=== PATIENT | female | born 1995 | race Caucasian/White ===

== ENCOUNTER 2017-04-03 16:54 | Emergency (ER) | payer OTHER ==
[~2017-04-03] VITALS: Wt 90.7 kg
[~2017-04-03 16:54] MED LIST: B COMPLETE1 EACH PO; BACTRIM DS 8001 TA1 PO; BIRTH CONTROL; CATAFLAM50 MG PO; CLARITIN10 MG PO; FLEXERIL5 MG PO; MOTRIN400 MG PO; MOTRIN600 MG PO; MOTRIN800 MG PO; MULTIPLE VITAMI1 T22 PO; MULTIVITAMIN FO1 CAP PO; TAMIFLU75 MG PO; TYLENOL W/CODEI1 TA2 PO; TYLENOL325 M1 PO; ZITHROMAX Z PA250 MG PO; ZYRTEC10 MG PO; Zofran4 MG PO
[2017-04-03 17:20] LABS: BILIRUBIN NEGATIVE (NEGATIVE); BLOOD 2+ (NEGATIVE); CLARITY SL CLOUDY (CLEAR); COLOR YELLOW (YELLOW); GLUCOSE NEGATIVE (NEGATIVE); KETONE NEGATIVE (NEGATIVE); LEUKO ESTERASE 3+ (NEGATIVE); NITRITE NEGATIVE (NEGATIVE); UROBILINOGEN 0.2 E.U./dl (0.2-1.0)
[2017-04-03 17:27] LABS: BACTERIA 3+
[2017-04-03 17:28] LABS: EPITHELIAL CELLS 21-30
[2017-04-03 17:30] LABS: RBC 16-20 rbc/hpf (0-2); WBC 21-30 wbc/hpf (0-5)
[2017-04-03 17:32] LABS: BUN 7 mg/dl (7-24); CHLORIDE 105 mmol/L (98-107); CREATININE 0.82 mg/dL (0.55-1.02); POTASSIUM 3.9 mmol/L (3.5-5.1); SODIUM 140 mmol/L (136-145)
[2017-04-03] MEDS ORDERED: ANAPROX DS550 MG PO (18:45)
[2017-04-03] MEDS ORDERED: MACROBID100 M1 PO (18:45)
== END 2017-04-03 19:15 | disposition home or self-care (01) ==
LOC: ED 16:54
PROVIDERS: Physician Assistant
DX: N30.01 Acute cystitis with hematuria (principal); Z87.442 Personal history of urinary calculi; Z79.899 Other long term (current) drug therapy

== ENCOUNTER 2017-06-18 09:23 | Emergency (ER) | payer OTHER ==
[~2017-06-18] VITALS: Wt 104.3 kg
[~2017-06-18 09:23] MED LIST changes: +ANAPROX DS550 MG PO; +MACROBID100 M1 PO
[2017-06-18 10:02] LABS: BASO % 0.5 % (0.0-1.0); EOS # 0.1 10*3/uL (0.0-0.4); EOS % 1.7 % (1.0-4.0); HEMATOCRIT 41.7 % (37.0-47.0); HEMOGLOBIN 13.8 g/dl (12.0-16.0); LYMPH # 1.5 10*3/uL (1.3-4.4); LYMPH % 17.8 % (27.0-41.0); MEAN CELL VOLUME 95.4 fl (81.0-99.0); MEAN CORPUSCULAR HGB 31.6 pg (27.0-31.0); MEAN CORPUSCULAR HGB CONC 33.1 g/dl (33.0-37.0); MEAN PLATELET VOLUME 10.3 fl (9.6-12.3); MONO # 0.8 10*3/uL (0.1-1.0); MONO % 9.5 % (3.0-9.0); NEUT # 5.8 10*3/uL (2.3-7.9); NEUT % 70.1 % (47.0-73.0); PLATELET COUNT AUTOMATED 323 10*3/uL (130-400); RED BLOOD COUNT 4.37 10*6/uL (4.10-5.10); RED CELL DISTRI WIDTH 13.3 % (0-14.5); WHITE BLOOD COUNT 8.2 10*3/uL (4.8-10.8)
[2017-06-18 10:37] LABS: ALBUMIN 3.8 gm/dl (3.1-4.5); ALKALINE PHOSPHATASE 106 U/L (45-117); BUN 10 mg/dl (7-24); CHLORIDE 106 mmol/L (98-107); CREATININE 0.85 mg/dL (0.55-1.02); LIPASE 65 U/L (73-393); POTASSIUM 3.6 mmol/L (3.5-5.1); SGOT/AST 12 IU/L (3-35); SGPT/ALT 22 U/L (12-78); SODIUM 139 mmol/L (136-145); TOTAL PROTEIN 7.4 gm/dL (6.4-8.2)
[2017-06-18 10:42] LABS: BILIRUBIN 1+ (NEGATIVE); BLOOD 3+ (NEGATIVE); CLARITY CLOUDY (CLEAR); COLOR YELLOW (YELLOW); GLUCOSE NEGATIVE (NEGATIVE); KETONE NEGATIVE (NEGATIVE); LEUKO ESTERASE 1+ (NEGATIVE); NITRITE NEGATIVE (NEGATIVE); SPECIFIC GRAVITY >= 1.030 (1.005-1.030); UROBILINOGEN 0.2 E.U./dl (0.2-1.0)
[2017-06-18 10:54] LABS: BACTERIA 2+; EPITHELIAL CELLS 16-20
[2017-06-18] MEDS ORDERED: ZOFRAN ODT4 MG SL (13:45)
[2017-06-18] MEDS ORDERED: NAPROSYN500 MG PO (13:45)
[2017-06-18] MEDS ORDERED: MACROBID100 M1 PO (13:45)
== END 2017-06-18 13:55 | disposition home or self-care (01) ==
LOC: ED 09:23
PROVIDERS: Nurse Practitioner Family
DX: N20.0 Calculus of kidney (principal); N39.0 Urinary tract infection, site not specified; R31.9 Hematuria, unspecified; Z79.899 Other long term (current) drug therapy

== ENCOUNTER → 2017-07-24 | Outpatient (CLI) | payer OTHER ==
[~2017-07-24] MED LIST changes: +NAPROSYN500 MG PO; +ZOFRAN ODT4 MG SL
== END ==
LOC: MRI 08:00
DX: K86.89 Other specified diseases of pancreas (principal)

== ENCOUNTER 2017-08-21 19:47 | Emergency (ER) | payer OTHER ==
[~2017-08-21] VITALS: Ht 162.5 cm; Wt 86.2 kg
[2017-08-21 22:00] LABS: BILIRUBIN 2+ (NEGATIVE); BLOOD TRACE-INTACT (NEGATIVE); CLARITY CLOUDY (CLEAR); COLOR YELLOW (YELLOW); GLUCOSE NEGATIVE (NEGATIVE); KETONE 2+ (NEGATIVE); LEUKO ESTERASE 1+ (NEGATIVE); NITRITE NEGATIVE (NEGATIVE); PH 5.5 (5.0-9.0); SPECIFIC GRAVITY >= 1.030 (1.005-1.030); UROBILINOGEN 0.2 E.U./dl (0.2-1.0)
[2017-08-21 22:08] LABS: BACTERIA 4+; EPITHELIAL CELLS 45-50; RBC 16-20 rbc/hpf (0-2); WBC 16-20 wbc/hpf (0-5)
[2017-08-21 22:32] LABS: HEMATOCRIT 47.3 % (37.0-47.0); HEMOGLOBIN 15.9 g/dl (12.0-16.0); MEAN CELL VOLUME 94.2 fl (81.0-99.0); MEAN CORPUSCULAR HGB 31.7 pg (27.0-31.0); MEAN CORPUSCULAR HGB CONC 33.6 g/dl (33.0-37.0); PLATELET COUNT AUTOMATED 319 10*3/uL (130-400); RED BLOOD COUNT 5.02 10*6/uL (4.10-5.10); RED CELL DISTRI WIDTH 13.4 % (0-14.5); WHITE BLOOD COUNT 14.8 10*3/uL (4.8-10.8)
[2017-08-21 22:49] LABS: ALBUMIN 3.8 gm/dl (3.1-4.5); ALKALINE PHOSPHATASE 78 U/L (45-117); BUN 12 mg/dl (7-24); CHLORIDE 109 mmol/L (98-107); CREATININE 0.73 mg/dL (0.55-1.02); LIPASE 98 U/L (73-393); POTASSIUM 3.9 mmol/L (3.5-5.1); SGOT/AST 6 IU/L (3-35); SGPT/ALT 22 U/L (12-78); SODIUM 141 mmol/L (136-145); TOTAL PROTEIN 7.9 gm/dL (6.4-8.2)
[2017-08-21 22:52] LABS: PLATELET SUFFICIENCY NORMAL (NORMAL); TOTAL CELLS COUNTED 100 #CELLS
[2017-08-21] MEDS ORDERED: AMINOPHYLLIN200 MG PO (23:50)
== END 2017-08-22 00:09 | disposition home or self-care (01) ==
LOC: ED 19:47
PROVIDERS: Nurse Practitioner Family; Student in an Organized Health Care Education/Training Program
DX: N39.0 Urinary tract infection, site not specified (principal); A08.4 Viral intestinal infection, unspecified; Z79.899 Other long term (current) drug therapy

== ENCOUNTER → 2017-08-22 | Day surgery (SDC) | payer OTHER ==
[~2017-08-22] VITALS: Ht 160 cm; Wt 92.1 kg
[~2017-08-22] MED LIST changes: +AMINOPHYLLIN200 MG PO
--- NOTE | ~2017-08-22 | O ---
[place], [place] OPERATIVE NOTE NAME[id number] UNIT #: [id number] ROOM: DOCTOR: KOBI VICENTEAMEENA BIRTHDATE: [birth year] DOS: 08/22/2017 INDICATIONS: A 21-year-old patient who has presented with chief complaint of abdominal pain and radiation to the back at times. PAST FAMILY HISTORY: Associated with colon carcinoma in father. PAST MEDICAL HISTORY: Renal lithiasis nonobstructive, the left side. SOCIAL HISTORY: Nonsmoker, nonalcohol consumer. PROCEDURE: Today's procedure part of investigation is panendoscopy plus biopsy. PREMEDICATION: Versed and Diprivan. SCOPE: Olympus forward-viewing gastroscope Q10 video. REPORT: After putting the patient in left lateral position and application of lubricant to the scope, the scope was introduced; thereafter, under direct visualization, I advanced through the length of esophagus without difficulty. Gastric pouch was entered. Mild gastritis was noticed. Antral biopsy obtained. Duodenal bulb, second and third part within normal limit. The patient was gradually extubated and tolerated the procedure well. IMPRESSION: Mild gastritis, status post biopsy. PLAN: Continuation with Prilosec therapy. As far as abdominal pain and radiation to the back is concerned, I have reviewed her CT scans of 06/18/2017. The patient's CT scan main organs were within normal limits. A nonobstructing left renal calculi has been the only finding. Later on some comments about possible pancreatic stone was considered and MRCP was done, date of the MRCP was 07/24/2017. Normal MRCP is reported and no result was reported by radiologist. PLAN AND DISCUSSION: She may be having an element of periodic agitation from non-obstructive stone in the left kidney that she is experiencing some of her abdominal distress. I have reviewed her records otherwise, recently been in the Emergency Room for cough and cold symptomatology. There has been a complete panel of blood work, lipase have been normal. Liver function test has been normal. Electrolytes are unremarkable. BUN and creatinine within normal limits. Her rapid flu studies A and B has been negative and her CBC, H and H of 15 and 47, white blood cell was 14 on 08/21/2017, that was a visit that she has had to [facility] [place] last night and she does not appear to be toxic this morning. I thank you very much indeed for your kind referral. [place], [place] OPERATIVE NOTE NAME: ALCON JOHNSON UNIT #: [id number] ROOM: DOCTOR: KOBI VICENTE,AMEENA BIRTHDATE: [birth year] AMEENA PEACE MD CM:OPRECORD:OPERATIVE NOTE 1000 [id number] AMEENA PEACE MD 09/03/17 1024 interface
[2017-08-22 09:14] VITALS: BP 108/77
[2017-08-22 09:55] VITALS: BP 102/52
[2017-08-22 10:10] VITALS: BP 97/57
[2017-08-22 10:25] VITALS: BP 104/67
== END ==
LOC: SDC 08-16 11:00
DX: K29.50 Unspecified chronic gastritis without bleeding (principal); G47.30 Sleep apnea, unspecified; Z87.442 Personal history of urinary calculi; Z80.9 Family history of malignant neoplasm, unspecified; Z80.0 Family history of malignant neoplasm of digestive organs

== ENCOUNTER → 2017-12-25 | Outpatient (CLI) | payer OTHER ==
[~2017-12-25] MED LIST changes: +AUGMENTIN 875875 MG PO
[2017-12-25 12:16] LABS: BASO # 0.1 10*3/uL (0.0-0.1); BASO % 0.5 % (0.0-1.0); EOS # 0.1 10*3/uL (0.0-0.4); EOS % 1.4 % (1.0-4.0); HEMATOCRIT 46.1 % (37.0-47.0); HEMOGLOBIN 14.9 g/dl (12.0-16.0); LYMPH # 1.9 10*3/uL (1.3-4.4); LYMPH % 19.4 % (27.0-41.0); MEAN CELL VOLUME 99.8 fl (81.0-99.0); MEAN CORPUSCULAR HGB 32.3 pg (27.0-31.0); MEAN CORPUSCULAR HGB CONC 32.3 g/dl (33.0-37.0); MEAN PLATELET VOLUME 9.5 fl (9.6-12.3); MONO # 0.8 10*3/uL (0.1-1.0); MONO % 7.9 % (3.0-9.0); NEUT # 6.7 10*3/uL (2.3-7.9); NEUT % 70.5 % (47.0-73.0); PLATELET COUNT AUTOMATED 290 10*3/uL (130-400); RED BLOOD COUNT 4.62 10*6/uL (4.10-5.10); RED CELL DISTRI WIDTH 13.3 % (0-14.5); WHITE BLOOD COUNT 9.5 10*3/uL (4.8-10.8)
[2017-12-25 12:56] LABS: ALBUMIN 3.9 gm/dl (3.1-4.5); BILIRUBIN, DIRECT 0.2 mg/dL (0.0-0.2); BUN 15 mg/dl (7-24); CHLORIDE 106 mmol/L (98-107); CREATININE 0.75 mg/dL (0.55-1.02); PHOSPHOROUS 2.9 mg/dL (2.5-4.9); POTASSIUM 3.8 mmol/L (3.5-5.1); SGOT/AST 11 IU/L (3-35); SGPT/ALT 20 U/L (12-78); SODIUM 139 mmol/L (136-145); TOTAL PROTEIN 7.7 gm/dL (6.4-8.2)
[2017-12-25 13:03] LABS: ALKALINE PHOSPHATASE 117 U/L (45-117); FREE T4 1.16 ng/dl (0.76-1.46)
== END | disposition home or self-care (01) ==
LOC: LAB 11:41
PROVIDERS: Internal Medicine
DX: E16.1 Other hypoglycemia (principal); R25.1 Tremor, unspecified

== ENCOUNTER 2017-12-26 22:25 | Emergency (ER) | payer OTHER ==
[~2017-12-26] VITALS: Ht 160 cm; Wt 96.2 kg
[~2017-12-26 22:25] MED LIST changes: -AUGMENTIN 875875 MG PO
[2017-12-26] MEDS ORDERED: AUGMENTIN 875875 MG PO (22:41)
== END 2017-12-26 23:08 | disposition home or self-care (01) ==
LOC: ED 22:25
DX: S60.222A Contusion of left hand, initial encounter (principal); Z87.442 Personal history of urinary calculi; Z79.899 Other long term (current) drug therapy; W55.01XA Bitten by cat, initial encounter; Y93.89 Activity, other specified; Y92.89 Other specified places as the place of occurrence of the external cause; Y99.8 Other external cause status

== ENCOUNTER → 2018-03-11 | Outpatient (CLI) | payer OTHER ==
[~2018-03-11] MED LIST changes: +AUGMENTIN 875875 MG PO
[2018-03-12 15:07] LABS: ARSENIC (TOTAL), URINE 13 ug/L (0-50)
[2018-03-12 18:07] LABS: LEAD BLOOD None Detected ug/dL (0-19)
[2018-03-12 20:08] LABS: MERCURY None Detected ug/L (0.0-14.9)
[2018-03-14 14:09] LABS: METHYLMALONIC ACID 205 nmol/L (0-378)
== END | disposition home or self-care (01) ==
LOC: LAB 12:02
PROVIDERS: Psychiatry & Neurology Neurology
DX: R25.1 Tremor, unspecified (principal)

== ENCOUNTER → 2018-03-13 | Outpatient (CLI) | payer OTHER ==
[2018-03-16 00:03] LABS: COPPER/CRT RATIO 11 (0-49)
== END | disposition home or self-care (01) ==
LOC: LAB 11:18
PROVIDERS: Psychiatry & Neurology Neurology
DX: R25.1 Tremor, unspecified (principal)

== ENCOUNTER → 2018-03-15 | Outpatient (CLI) | payer OTHER ==
[2018-03-19 14:08] LABS: NORMETANEPHRINE URINE 302 ug/L (Undefined); URINE METANEPHRINE 168 ug/L (Undefined); URINE METANEPHRINE, 24 HR 134 ug/24 hr (45-290); URINE NORMETANEPHRINE 24HR 242 ug/24 hr (82-500)
[2018-03-22 13:03] LABS: DOPAMINE, URINE 578 ug/L (Undefined); EPINEPHRINE, URINE 24 HR 6 ug/24 hr (0-20)
== END | disposition home or self-care (01) ==
LOC: LAB 10:28
PROVIDERS: Psychiatry & Neurology Neurology
DX: R25.1 Tremor, unspecified (principal)

== ENCOUNTER 2018-11-04 21:10 | Emergency (ER) | payer SELFPAY ==
[~2018-11-04] VITALS: Ht 160 cm; Wt 98.0 kg
--- NOTE | ~2018-11-04 | EKG ---
[place], [place] ELECTROCARDIOGRAM REPORT NAME: ALCON JOHNSON UNIT #: [id number] ROOM: DOCTOR: EPIPHANY DRAFT REPORT BIRTHDATE: [birth year] [facility] Test Date: 2018-11-04 Test Time: 21:21:59 Pat Name: ALCON JOHNSON Department: Room: Gender: F [employer] Machine Operator: : 1995 Requested By: JENNIFER LUIS Order Number: [id number] Reading MD: Bret Banks MD Measurements Intervals [place] Rate: 110 P: 51 VA: 146 QRS: 55 QRSD: 73 T: 8 QT: 322 QTc: 436 Interpretive Statements Sinus tachycardia Consider right atrial enlargement Borderline T abnormalities, anterior leads No previous ECG available for comparison Electronically Signed On 11-05-2018 4:13:10 PDT by Bret Banks MD CM:EKGRPT:ELECTROCARDIOGRAM REPORT 20 0413 JENNIFER KENNEDY DRAFT REPORT JENNIFER LUIS DO
[2018-11-04 21:54] LABS: BASO # 0.1 10*3/uL (0.0-0.1); BASO % 0.6 % (0.0-1.0); EOS # 0.1 10*3/uL (0.0-0.4); EOS % 0.4 % (1.0-4.0); HEMATOCRIT 45.4 % (37.0-47.0); HEMOGLOBIN 14.8 g/dl (12.0-16.0); LYMPH # 1.6 10*3/uL (1.3-4.4); LYMPH % 12.3 % (27.0-41.0); MEAN CELL VOLUME 98.1 fl (81.0-99.0); MEAN CORPUSCULAR HGB CONC 32.6 g/dl (33.0-37.0); MEAN PLATELET VOLUME 9.9 fl (9.6-12.3); MONO # 1.1 10*3/uL (0.1-1.0); NEUT # 10.4 10*3/uL (2.3-7.9); NEUT % 78.3 % (47.0-73.0); PLATELET COUNT AUTOMATED 291 10*3/uL (130-400); RED BLOOD COUNT 4.63 10*6/uL (4.10-5.10); WHITE BLOOD COUNT 13.3 10*3/uL (4.8-10.8)
[2018-11-04 22:19] LABS: ALBUMIN 3.9 gm/dl (3.1-4.5); ALKALINE PHOSPHATASE 117 U/L (45-117); BUN 15 mg/dl (7-24); CHLORIDE 107 mmol/L (98-107); CREATININE 0.93 mg/dL (0.55-1.02); POTASSIUM 3.8 mmol/L (3.5-5.1); SGOT/AST 8 IU/L (3-35); SGPT/ALT 21 U/L (12-78); SODIUM 142 mmol/L (136-145); TOTAL PROTEIN 8.1 gm/dL (6.4-8.2)
[2018-11-04 22:33] LABS: BETA-HCG, QUANT < 1.0 mIU/mL (1-3); TROPONIN I < 0.015 ng/ml (<0.045)
[2018-11-13] MEDS ORDERED: NORCO 5-325 TA1 EACH PO (00:01)
[2018-11-13] MEDS ORDERED: FLOMAX0.4 MG PO (00:01)
[2018-11-13] MEDS ORDERED: MEDROL DOSEPAK4 MG PO (00:01)
== END 2018-11-04 23:02 | disposition home or self-care (01) ==
LOC: ED 21:10
PROVIDERS: Student in an Organized Health Care Education/Training Program
DX: R07.89 Other chest pain (principal); R09.81 Nasal congestion; Z79.2 Long term (current) use of antibiotics; Z79.899 Other long term (current) drug therapy

== ENCOUNTER 2018-11-13 22:08 | Emergency (ER) | payer SELFPAY ==
[~2018-11-13] VITALS: Ht 160 cm; Wt 98.0 kg
[~2018-11-13 22:08] MED LIST changes: +FLOMAX0.4 MG PO; +MEDROL DOSEPAK4 MG PO; +NORCO 5-325 TA1 EACH PO
[2018-11-13 22:38] LABS: BASO # 0.1 10*3/uL (0.0-0.1); BASO % 0.5 % (0.0-1.0); EOS # 0.1 10*3/uL (0.0-0.4); EOS % 0.8 % (1.0-4.0); HEMATOCRIT 43.1 % (37.0-47.0); HEMOGLOBIN 14.2 g/dl (12.0-16.0); LYMPH # 2.7 10*3/uL (1.3-4.4); LYMPH % 19.4 % (27.0-41.0); MEAN CELL VOLUME 96.6 fl (81.0-99.0); MEAN CORPUSCULAR HGB 31.8 pg (27.0-31.0); MEAN CORPUSCULAR HGB CONC 32.9 g/dl (33.0-37.0); MEAN PLATELET VOLUME 9.4 fl (9.6-12.3); MONO # 1.3 10*3/uL (0.1-1.0); MONO % 9.2 % (3.0-9.0); NEUT # 9.7 10*3/uL (2.3-7.9); NEUT % 69.7 % (47.0-73.0); PLATELET COUNT AUTOMATED 352 10*3/uL (130-400); RED BLOOD COUNT 4.46 10*6/uL (4.10-5.10); RED CELL DISTRI WIDTH 12.6 % (0-14.5); WHITE BLOOD COUNT 13.9 10*3/uL (4.8-10.8)
[2018-11-13 22:58] LABS: BILIRUBIN NEGATIVE (NEGATIVE); BLOOD 3+ (NEGATIVE); CLARITY CLOUDY (CLEAR); COLOR YELLOW (YELLOW); GLUCOSE NEGATIVE (NEGATIVE); KETONE TRACE (NEGATIVE); LEUKO ESTERASE NEGATIVE (NEGATIVE); NITRITE NEGATIVE (NEGATIVE); SPECIFIC GRAVITY >= 1.030 (1.005-1.030); UROBILINOGEN 0.2 E.U./dl (0.2-1.0)
[2018-11-13 23:03] LABS: ALBUMIN 3.6 gm/dl (3.1-4.5); ALKALINE PHOSPHATASE 107 U/L (45-117); BUN 13 mg/dl (7-24); CHLORIDE 107 mmol/L (98-107); CREATININE 0.97 mg/dL (0.55-1.02); POTASSIUM 3.7 mmol/L (3.5-5.1); SGOT/AST 9 IU/L (3-35); SGPT/ALT 22 U/L (12-78); SODIUM 142 mmol/L (136-145); TOTAL PROTEIN 7.6 gm/dL (6.4-8.2)
[2018-11-13 23:05] LABS: B-hCG (QUALITATIVE) NEGATIVE (NEGATIVE)
[2018-11-13 23:22] LABS: BACTERIA 2+; EPITHELIAL CELLS TNTC; RBC TNTC rbc/hpf (0-2); WBC 16-20 wbc/hpf (0-5)
== END 2018-11-14 00:35 | disposition home or self-care (01) ==
LOC: ED 22:08
PROVIDERS: Emergency Medicine Emergency Medical Services
DX: N20.1 Calculus of ureter (principal); N23 Unspecified renal colic; Z79.899 Other long term (current) drug therapy

== ENCOUNTER 2019-01-23 18:13 | Emergency (ER) | payer OTHER ==
[~2019-01-23] VITALS: Ht 160 cm; Wt 98.0 kg
[2019-01-23 18:54] LABS: BILIRUBIN NEGATIVE (NEGATIVE); BLOOD 2+ (NEGATIVE); CLARITY CLOUDY (CLEAR); COLOR YELLOW (YELLOW); GLUCOSE NEGATIVE (NEGATIVE); KETONE NEGATIVE (NEGATIVE); LEUKO ESTERASE 3+ (NEGATIVE); NITRITE NEGATIVE (NEGATIVE); SPECIFIC GRAVITY 1.025 (1.005-1.030); UROBILINOGEN 0.2 E.U./dl (0.2-1.0)
[2019-01-23 18:56] LABS: WBC TNTC wbc/hpf (0-5)
[2019-01-23] MEDS ORDERED: PYRIDIUM200 M1 PO (20:10)
[2019-01-23] MEDS ORDERED: SEPTDS PO (20:10)
== END 2019-01-23 20:20 | disposition home or self-care (01) ==
LOC: ED 18:13
PROVIDERS: Physician Assistant
DX: N39.0 Urinary tract infection, site not specified (principal); K21.9 Gastro-esophageal reflux disease without esophagitis; Z87.442 Personal history of urinary calculi; Z79.899 Other long term (current) drug therapy

== ENCOUNTER 2020-07-09 21:35 | Emergency (ER) | payer OTHER ==
[~2020-07-09] VITALS: Ht 160 cm; Wt 104.3 kg
[~2020-07-09 21:35] MED LIST changes: +PYRIDIUM200 M1 PO; +SEPTDS PO
[2020-07-09 22:00] LABS: BASO % 0.5 % (0.0-1.0); EOS # 0.2 10*3/uL (0.0-0.4); EOS % 2.8 % (1.0-4.0); HEMATOCRIT 48.1 % (37.0-47.0); LYMPH # 1.7 10*3/uL (1.3-4.4); LYMPH % 27.9 % (27.0-41.0); MEAN CELL VOLUME 93.9 fl (81.0-99.0); MEAN CORPUSCULAR HGB 30.7 pg (27.0-31.0); MEAN CORPUSCULAR HGB CONC 32.6 g/dl (33.0-37.0); MEAN PLATELET VOLUME 10.3 fl (9.6-12.3); MONO # 0.4 10*3/uL (0.1-1.0); MONO % 6.2 % (3.0-9.0); NEUT # 3.8 10*3/uL (2.3-7.9); NEUT % 62.3 % (47.0-73.0); PLATELET COUNT AUTOMATED 191 10*3/uL (130-400); RED BLOOD COUNT 5.12 10*6/uL (4.10-5.10); WHITE BLOOD COUNT 6.2 10*3/uL (4.8-10.8)
[2020-07-09 22:18] LABS: ALBUMIN 3.6 gm/dl (3.1-4.5); ALKALINE PHOSPHATASE 74 U/L (45-117); BUN 12 mg/dl (7-24); CHLORIDE 106 mmol/L (98-107); CREATININE 0.73 mg/dL (0.55-1.02); POTASSIUM 3.3 mmol/L (3.5-5.1); SGOT/AST 24 IU/L (3-35); SGPT/ALT 18 U/L (12-78); SODIUM 140 mmol/L (136-145); TOTAL PROTEIN 7.9 gm/dL (6.4-8.2)
[2020-07-09] MEDS ORDERED: ZITHROMAX250 MG PO (22:52)
== END 2020-07-09 22:57 | disposition home or self-care (01) ==
LOC: ED 21:35
PROVIDERS: Internal Medicine
DX: U07.1 COVID-19 (principal); E87.6 Hypokalemia; J18.9 Pneumonia, unspecified organism

== ENCOUNTER 2021-04-14 19:12 | Emergency (ER) | payer SELFPAY ==
[~2021-04-14] VITALS: Ht 160 cm; Wt 68.0 kg
[~2021-04-14 19:12] MED LIST changes: +ZITHROMAX250 MG PO
[2021-04-14 20:42] LABS: BILIRUBIN Negative (Negative); BLOOD 3+ (Negative); CLARITY Cloudy (Clear); COLOR Dark Yellow (Yellow); GLUCOSE Negative (Negative); KETONE 1+ (Negative); LEUKO ESTERASE Trace (Negative); NITRITE Negative (Negative); SPECIFIC GRAVITY >= 1.030 (1.001-1.030)
[2021-04-14 20:52] LABS: BACTERIA 2+; RBC TNTC rbc/hpf (0-2)
[2021-04-14] MEDS ORDERED: SEPTDS PO (21:43)
[2021-04-14] MEDS ORDERED: PYRIDIUM200 M1 PO (21:43)
== END 2021-04-14 22:13 | disposition home or self-care (01) ==
LOC: ED 19:12
PROVIDERS: Emergency Medicine
DX: N39.0 Urinary tract infection, site not specified (principal); Z79.899 Other long term (current) drug therapy

== ENCOUNTER 2025-05-29 23:56 | Emergency (ER) | payer OTHER ==
[~2025-05-29] VITALS: Ht 162.5 cm; Wt 163.3 kg
[2025-05-30] MEDS ORDERED: NAPROSYN500 MG PO (01:13)
[2025-05-30] MEDS ORDERED: NAPROXEN 250 MG TAB PO ONE (01:15)
== END 2025-05-30 01:44 | disposition home or self-care (01) ==
LOC: ED 23:56
DX: S93.402A Sprain of unspecified ligament of left ankle, initial encounter (principal); G47.30 Sleep apnea, unspecified; K21.9 Gastro-esophageal reflux disease without esophagitis; Z87.442 Personal history of urinary calculi; W22.8XXA Striking against or struck by other objects, initial encounter; Y93.89 Activity, other specified; Y92.89 Other specified places as the place of occurrence of the external cause; Y99.8 Other external cause status